=== PATIENT | female | born 1965 | race Two or more races ===

== ENCOUNTER → 2016-08-23 | Outpatient (CLI) | payer SELFPAY ==
--- NOTE | 2016-08-23 14:21 | EKG ---
[facility] - [place], [place] Measurements Intervals [place] Rate: 100 P: 45 NH: 155 QRS: 33 QRSD: 86 T: 4 QT: 345 QTc: 402 Interpretive Statements SINUS TACHYCARDIA NONSPECIFIC ST & T-WAVE ABNORMALITY ABNORMAL RHYTHM ECG No previous ECG available for comparison Electronically Signed On 08-24-16 08:22:57 MST by Jed Azevedo MD [email or web address]
== END ==
LOC: EKG 14:19
DX: R01.1 Cardiac murmur, unspecified (principal); R00.0 Tachycardia, unspecified
CPT/HCPCS: 93005; 93010

== ENCOUNTER 2017-08-06 06:23 | Inpatient (IN) ==
[~2017-08-06 06:23] MED LIST: CefOXitin Inj 2 GM in Sodium Chloride 0.9% 100 ML IV ONE; LIDOCAINE W/ SODIUM BICARB 0.5 ML SYR ONE; LIDOCAINE W/ SODIUM BICARB 0.5 ML SYR SUBD ONE; Lactated Ringers 1,000 ML PRIMARY IV ONE; Sodium Chloride 0.9% 100 ML IV ONE
[2017-08-06 06:41] LABS: BILIRUBIN,URINE SMALL (NEG); CLARITY,URINE Slightly Cloudy (CLEAR); COLOR,URINE YELLOW (Y); GLUCOSE, URINE (UA) NEGATIVE (NEG); OCCULT BLOOD,URINE LARGE (NEG); PH,URINE 5.5 (5.0-8.5); PROTEIN,URINE 30 mg/dl (NEG); UROBILINOGEN,URINE 0.2 EU/dL (0.2)
[2017-08-06 06:43] LABS: URINE SPECIFIC GRAVITY - MAN 1.028
[2017-08-06] MEDS: Lactated Ringers 1,000 ML PRIMARY IV SCH ×3 (06:47→21:42)
[2017-08-06 06:50] LABS: BACTERIA,URINE MODERATE; SQUAMOUS EPITHELIAL CELL,UR MANY; URINE SAMPLE TYPE VOIDED SPECIMEN
[2017-08-06] MEDS ORDERED: fentaNYL Inj 250 MCG/5 ML VIAL ONE (06:53)
[2017-08-06] MEDS ORDERED: MIDAZOLAM 5 MG/1 ML ONE (06:53)
[2017-08-06] MEDS ORDERED: LIDOCAINE MPF 2% - 5 ML (20 MG/1 ML) ONE (06:54)
[2017-08-06] MEDS ORDERED: ROCURONIUM 10 MG/1 ML - 5 ML VIAL IVP ONE ×2 (06:54→08:21)
[2017-08-06] MEDS ORDERED: PROPOFOL 10 MG/1 ML (200 MG/20 ML) VIAL IV ONE (06:54)
[2017-08-06 07:30] LABS: Hematocrit [HCT] 36.1 % (37.0-47.0); Hemoglobin [HGB] 11.4 g/dL (12.0-16.0); MEAN CORPUSCULAR HGB CONC 31.6 g/dL (33-37); MEAN CORPUSCULAR VOLUME 88.7 FL (81-99); MEAN PLATELET VOLUME 11.3 FL (7.4-12.2); RED BLOOD COUNT 4.07 10^6/uL (4.20-5.40)
[2017-08-06] MEDS ORDERED: KETAMINE 100 MG/1 ML - 5 ML ONE (08:18)
[2017-08-06] MEDS ORDERED: Sodium Chloride 0.9% vial 40 ML ONE (08:26)
[2017-08-06] MEDS ORDERED: BUPivacaine Liposome/PF (Exparel) Inj 20ml vial INFIL ONE (08:27)
[2017-08-06] MEDS ORDERED: HYDROmorphone 2 MG/1 ML ONE (08:44)
[2017-08-06] MEDS ORDERED: Lactated Ringers 1,000 ML PRIMARY IV ONE (08:49)
[2017-08-06] MEDS ORDERED: Indigotindisulfonate Inj 40mg/5ml amp ONE (09:24)
[2017-08-06] MEDS ORDERED: SUGAMMADEX SODIUM 200 MG/2 ML VIAL IV ONE (09:39)
[2017-08-06] MEDS ORDERED: KETOROLAC 30 MG/1 ML VIAL ONE (09:39)
[2017-08-06] MEDS ORDERED: PROMETHAZINE 25 MG/1 ML VIAL IM PRN (09:39)
[2017-08-06] MEDS ORDERED: HYDROmorphone 2 MG/1 ML IVP PRN ×2 (09:39→14:24)
[2017-08-06] MEDS ORDERED: fentaNYL Inj 100 MCG/2 ML VIAL IVP PRN (09:39)
[2017-08-06] MEDS ORDERED: ONDANSETRON 4 MG/2 ML VIAL IVP PRN ×2 (09:39→10:05)
[2017-08-06] MEDS ORDERED: diphenhydrAMINE 50 MG/1 ML VIAL IVP PRN (10:05)
[2017-08-06] MEDS ORDERED: Zolpidem Tab 5 MG TAB PO PRN (10:05)
--- NOTE | 2017-08-06 10:11 | OB.OP.NOTE ---
Operative Report Surgeon: Yogesh Scout Sniper: Michael Astudillo MD Anesthesia Type: General Anesthesia Provider: Dov Becker CRNA Surgery Date: 08/06/17 Preoperative Diagnosis: Very Large Fibroid Uterus Postoperative Diagnosis: Same Procedure: JOSEFINA/BSO/Cystoscopy Estimated Blood Loss (mL): 125 Fluids: 2000 ml Complications: None Findings at Surgery: 2913 gram multiply fibroid uterus. Normal tubes and ovaries. At cysto, both ureters ejected blue urine indicating ureteral patency and function. Indications for the Procedure: Very large fibroid uterus. Description of Procedure: See dictated operative report. Plan: Routine post op care.
--- NOTE | 2017-08-06 10:37 | CRNA.PROGR ---
Anesthesia Recovery Phase I - Post Anesthesia Evaluation Patient's Condition on Arrival in Phase I: Stable Pain Level: 4
--- NOTE | 2017-08-06 10:38 | CRNA.PROGR ---
Anesthesia Time - - Start date: 08/06/17 End date: 08/06/17 - Procedure/Recovery Time Anesthesia : Time In: 07:55 Anesthesia : Time Out: 10:22 Anesthesia : Total Time: 147 - Total Anesthesia Time Total Anesthesia Time (minutes): 147 - Other Weight: 71.214 kg Height: 5 ft 5 in Body Mass Index (BMI): 26.1 Physical Status: P2 Anesthesia Type: General Anesthesia : ET (JOSEFINA/BSO)
[2017-08-06] MEDS ORDERED: HYDROcodone-APAP 7.5 MG-325 MG TABLET PO ONE (10:40)
[2017-08-06] MEDS: HYDROcodone-APAP 7.5 MG-325 MG TABLET PO PRN ×2 (10:45→14:15)
[2017-08-06] MEDS: KETOROLAC 15 MG/1 ML VIAL IVP PRN (11:38)
[2017-08-06] MEDS ORDERED: NALOXONE 0.4 MG/1 ML VIAL IVP PRN (15:53)
[2017-08-06] MEDS ORDERED: HYDROmorphone/PF/PCA 9 MG/30 ML IV SCH (16:00)
[2017-08-06] MEDS: DOCUSATE 100 MG CAPSULE PO SCH ×2 (19:55→20:29)
[2017-08-07] MEDS: Lactated Ringers 1,000 ML PRIMARY IV SCH (05:52)
--- NOTE | 2017-08-07 08:34 | PDOC(PROG) ---
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 She has not used her SOUNDSCRIBER MECHANIC much. Pain control is good. She is able to ambulate without difficulty. Assesstment / Plan Assessment / Plan: POD 1 doing well. DC [place] and ambulate as much as possible. Up to chair as much as possible.
[2017-08-07] MEDS: KETOROLAC 15 MG/1 ML VIAL IVP PRN ×2 (08:56→15:16)
[2017-08-07] MEDS: DOCUSATE 100 MG CAPSULE PO SCH ×2 (08:56→20:32)
[2017-08-07] MEDS: oxyCODONE-ACETAMINOPHEN 5-325 TAB PO PRN ×2 (08:56→20:32)
[2017-08-07] MEDS: NORMAL SALINE 10 ML SYRINGE FLUSH IVP PRN ×2 (08:56→15:17)
[2017-08-07] MEDS ORDERED: SIMETHICONE 80 MG TABLET PO PRN (17:23)
[2017-08-08] MEDS: KETOROLAC 15 MG/1 ML VIAL IVP PRN (00:03)
[2017-08-08] MEDS: oxyCODONE-ACETAMINOPHEN 5-325 TAB PO PRN ×2 (07:39→12:57)
[2017-08-08 07:46] VITALS: BP 108/76; RESP 16; TEMP 97.1; O2SAT 97
[2017-08-08] MEDS: DOCUSATE 100 MG CAPSULE PO SCH (08:29)
--- NOTE | 2017-08-08 08:31 | CRNA.PROGR ---
Anesthesia Note - Progress Notes Anesthesia Progress Note: Sitting up in bed watching tv. Has been ambulatory ad richard. Discussed anesthetic course and expectations. She has no questions or concerns regarding her anesthetic. Vital Signs (72 hrs) Temp Pulse Pulse Resp Resp BP BP 08/08/17 07:45 97.1 F 96 16 108/76 08/08/17 04:49 08/08/17 04:45 98.5 F 77 18 120/77 08/08/17 00:17 98.2 F 73 18 115/76 08/07/17 21:04 98.8 F 83 112/77 08/07/17 20:41 98.5 F 92 20 104/67 08/07/17 16:13 98.9 F 70 18 116/75 08/07/17 12:15 98 F 88 18 116/74 08/07/17 07:11 98.7 F 80 18 135/81 08/07/17 06:54 08/07/17 06:53 18 08/07/17 04:54 98.3 F 67 18 122/84 08/07/17 04:11 08/07/17 03:00 08/07/17 01:00 98.8 F 88 18 108/66 08/06/17 23:00 08/06/17 20:37 98.4 F 83 18 123/81 08/06/17 18:48 81 16 08/06/17 17:00 16 08/06/17 16:43 97.2 F 80 17 128/87 08/06/17 13:15 97.2 F 75 17 133/82 08/06/17 12:30 97.2 F 80 16 139/81 08/06/17 11:45 97.6 F 76 16 125/88 08/06/17 11:17 97.8 F 93 17 135/89 08/06/17 10:55 97.7 F 89 12 152/94 08/06/17 10:45 97.7 F 86 19 156/92 08/06/17 10:35 97.0 F 90 19 139/83 08/06/17 10:30 97.8 F 88 13 143/87 08/06/17 10:25 98.0 F 95 17 139/98 08/06/17 10:20 99.8 F H 100 14 142/85 08/06/17 07:35 98.1 F 91 16 120/75 Pulse Ox 08/08/17 07:45 97 08/08/17 04:49 94 08/08/17 04:45 95 08/08/17 00:17 92 08/07/17 21:04 08/07/17 20:41 94 08/07/17 16:13 94 08/07/17 12:15 95 08/07/17 07:11 97 08/07/17 06:54 97 08/07/17 06:53 08/07/17 04:54 98 08/07/17 04:11 97 08/07/17 03:00 99 08/07/17 01:00 97 08/06/17 23:00 99 08/06/17 20:37 97 08/06/17 18:48 97 08/06/17 17:00 08/06/17 16:43 100 08/06/17 13:15 97 08/06/17 12:30 98 08/06/17 11:45 96 08/06/17 11:17 96 08/06/17 10:55 98 08/06/17 10:45 97 08/06/17 10:35 96 08/06/17 10:30 98 08/06/17 10:25 94 08/06/17 10:20 96 08/06/17 07:35 99
--- NOTE | 2017-08-08 12:11 | PDOC(PROG) ---
Subjective Post Op Day: 2 Pain Management: PO Deras Catheter: No Flatus: Yes Diet: Regular Ambulating: Yes Concerns / Additional Information: Janina is doing very well today. She is ambulating well, and tolerating regular diet. Pain control is good. She is ready to go home. Assesstment / Plan Assessment / Plan: POD 2, doing well. Discharge to home.
--- NOTE | 2017-08-08 12:14 | DCSUMMARY ---
Hospitalization Summary Admit Date: 08/06/17 Discharge Date: 08/08/17 Primary Diagnosis:: Large Fibroid Uterus Hospital Course: The patient underwent an uncomplicated JOSEFINA/BSO for large fibroid uterus. Her post operative course was uncomplicated. She tolerated a regular diet on POD 1 and remained afebrile throughout her course. She was discharged to home on POD 2 in good condition. Diet: regular. F/u: 1 week. Exam - Vitals Vital Signs: Vital Signs Temperature 97.1 F Temperature Source Temporal Artery Scan Pulse Rate [Pulse Oximeter] 96 Pulse Rate 89 Respiratory Rate [Lower 18 Abdomen] Respiratory Rate 16 Blood Pressure [Right Arm] 108/76 Blood Pressure 152/94 Pulse Ox 97 Oxygen Flow Rate [Lower 1 Abdomen] Oxygen Flow Rate 1 Oxygen Delivery Method Room Air Height 5 ft 5 in Weight 149 lb 6.4 oz
== END 2017-08-08 13:07 | disposition home or self-care (01) | DRG 743 ==
LOC: OPS 06:23 → EDSTATUS 08:00 → MED/SURG 10:56
PROVIDERS: ADMIT Obstetrics & Gynecology; ATTEND Obstetrics & Gynecology